=== PATIENT | female | born 1975 | race Caucasian/White ===

== ENCOUNTER 2017-03-03 20:50 | Emergency (ER) | payer OTHER ==
[2017-03-03 21:15] VITALS: BP 126/60; PULSE 86; TEMP 98.1; BMI 22.2
[2017-03-03] MEDS ORDERED: SODIUM CHLORIDE 1,000 ML IV STA (23:02)
--- NOTE | 2017-03-03 23:02 | PDOC ---
History of Present Illness - General History Source: Patient Exam Limitations: No Limitations - History of Present Illness Initial Comments: 03/03/17 23:14 The patient is a 41 year old female with past medical history of D&C x2 and s/p hysterectomy (06/2015) who presents to the ED for 2 days of superpubic pain. Patient describes her pain as crampy in nature. Denies nausea, vomiting, or diarrhea. States she is having difficulty passing stool and when she does, her stool is sometimes look green. Denies bloody stool or melena. Denies any sick contacts or recent travels. The patient denies fever, chills, cough, SOB, chest pain, and palpitations. The patient denies dysuria, hematuria, urgency, and frequency. Allergies: NKDA Social History: No alcohol, tobacco, or drug use reported. Past Surgical History: D&C x2, s/p hysterectomy 06/2015 PCP: n/a <Doreen Cui - Last Filed: 03/04/17 01:32> - General History Source: Patient <Ciaran Sinclair - Last Filed: 03/04/17 03:07> - General Chief Complaint: Pain Stated Complaint: ABD PAIN Time Seen by Provider: 03/03/17 22:59 Past History <Doreen Cui - Last Filed: 03/04/17 01:32> - Past Medical History Other medical history: Pt denies - Surgical History Abdominal Surgery: Yes - Reproductive History (#): 4 Para: 2 Spontaneous : 3 - Immunization History Immunization Up to Date: Yes - Psycho/Social/Smoking Cessation Hx Anxiety: No Suicidal Ideation: No Smoking Status: No Smoking History: Never smoked Have you smoked in the past 12 months: No Number of Cigarettes Smoked Daily: 0 Information on smoking cessation initiated: No Hx Alcohol Use: No Drug/Substance Use Hx: No Substance Use Type: None <Ciaran Sinclair - Last Filed: 03/04/17 03:07> - Past Medical History Allergies/Adverse Reactions: Allergies Allergy/AdvReac Type Severity Reaction Status Date / Time No Known Allergies Allergy Verified 03/03/17 21:13 Home Medications: Ambulatory Orders No Home Medications 0 dose .ROUTE UTDICT 05/13/13 Ibuprofen [Motrin] 400 mg PO TID #30 tablet 03/04/17 Levofloxacin [Levaquin -] 500 mg PO DAILY #7 tablet 03/04/17 Review of Systems - Review of Systems Able to Perform ROS?: Yes Comments:: 03/03/17 23:14 CONSTITUTIONAL: Absent: fever, no chills, no fatigue EYES: Absent: visual changes ENT: Absent: ear pain, no sore throat CARDIOVASCULAR: Absent: chest pain, no palpitations RESPIRATORY: Absent: cough, no SOB GI: +superpubic pain, constipation Absent: no nausea, no vomiting, no diarrhea GENITOURINARY: Absent: dysuria, no frequency, no hematuria MUSCULOSKELETAL: Absent: back pain, no arthralgia, no myalgia SKIN: Absent: rash NEURO: Absent: headache <Doreen Cui - Last Filed: 03/04/17 01:32> *Physical Exam - Vital Signs Last Vital Signs Temp Pulse Resp BP Pulse Ox 98.1 F 86 20 126/60 100 03/03/17 21:13 03/03/17 21:13 03/03/17 21:13 03/03/17 21:13 03/03/17 21:13 - Physical Exam Comments: 03/03/17 23:14 GENERAL: Well-appearing, well-nourished. No apparent distress. HEENT: Normocephalic, atraumatic. PERRL, EOM intact. CARDIOVASCULAR: Normal S1, S2. Regular rate and rhythm. PULMONARY: Clear to auscultation bilaterally. ABDOMEN: Soft, non-distended, moderate tenderness in the superpubic region. No rebound or guarding. EXTREMITIES: Normal ROM in all four extremities. No gross deformities. SKIN: Warm, dry. No rash NEUROLOGICAL: No focal neurological deficits. 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 No intravenous contrast was given. Coronal and sagittal reconstructions were formatted. Sections through the lung bases are unremarkable. The liver and spleen have a normal size and configuration. The gallbladder, biliary tree and pancreas are unremarkable. The kidneys are without stone or hydronephrosis. No solid renal mass is identified. The bowel gas pattern is unremarkable. There is no abnormal bowel wall thickening or evidence of diverticulitis. I see no evidence of colitis. The appendix is normal. The pelvic structures are unremarkable. There is no pathologic adenopathy. The aorta has normal caliber. IMPRESSION: No acute findings are seen in the abdomen or pelvis on this unenhanced examination. <Doreen Cui - Last Filed: 03/04/17 01:32> - LABORATORY CBC & Chemistry Diagram: 03/03/17 23:40 03/03/17 23:40 <Ciaran Sinclair - Last Filed: 03/04/17 03:07> Medical Decision Making - Medical Decision Making 03/04/17 03:07 Dr. Sinclair: The scribe's documentation has been prepared under my direction and personally reviewed by me in its entirery. I confirm that the note above accurately reflects all work, treatment, procedures, and medical decision making performed by me. <Ciaran Sinclair - Last Filed: 03/04/17 03:07> *DC/Admit/Observation/Transfer - Attestations Scribe Attestion: 03/03/17 23:14 Documentation prepared by Doreen Cui, acting as medical technologist prn for Ciaran Sinclair DO. <Doreen Cui - Last Filed: 03/04/17 01:32> - Discharge Dispostion Admit: No <Ciaran Sinclair - Last Filed: 03/04/17 03:07> Diagnosis at time of Disposition: UTI (urinary tract infection) Qualifiers: Urinary tract infection type: site unspecified Hematuria presence: without hematuria Qualified Code(s): N39.0 - Urinary tract infection, site not specified - Prescriptions Prescriptions: Levofloxacin [Levaquin -] 500 mg PO DAILY #7 tablet Ibuprofen [Motrin] 400 mg PO TID #30 tablet - Referrals Referrals: Jairon Gomez MD [Staff Physician] - - Patient Instructions Printed Discharge Instructions: DI for Urinary Tract Infection (UTI) Additional Instructions: take medication as directed. Follow up with your doctor for re-evaluation. Print Language: YI
[2017-03-03 23:51] LABS: BASOPHIL 0.2 % (0-2.0); EOSINOPHIL 0.8 % (0-4.5); MCH 31.1 pg (25.7-33.7); MCHC 34.6 g/dl (32.0-36.0); MEAN CELL VOLUME 89.9 fl (80-96); MEAN PLT VOLUME 9.2 fl (7.5-11.1); PLATELET COUNT 208 K/MM3 (134-434); RDW 14.2 % (11.6-15.6); WHITE BLOOD COUNT 6.6 K/mm3 (4.0-10.0)
[2017-03-04 00:26] LABS: ANION GAP 8 (8-16); CALCIUM 8.8 mg/dL (8.5-10.1); CO2 27 mmol/L (21-32); CREATININE 0.6 mg/dL (0.55-1.02); GLUCOSE,RANDOM 93 mg/dL (74-106); MAGNESIUM 2.3 mg/dL (1.8-2.4); SGOT/AST 18 U/L (15-37); SGPT/ALT 31 U/L (12-78)
[2017-03-04 00:27] LABS: ALK PHOS 60 U/L (45-117); BILIRUBIN,TOTAL 0.8 mg/dL (0.2-1.0); TOT PROT 7.8 g/dl (6.4-8.2)
[2017-03-04 02:46] LABS: URINE APPEARANCE SLCLOUDY; URINE BILIRUBIN NEGATIVE (NEGATIVE); URINE BLOOD 2+ (NEGATIVE); URINE COLOR YELLOW; URINE GLUCOSE (UA) NEGATIVE (NEGATIVE); URINE KETONE 1+ (NEGATIVE); URINE NITRITE NEGATIVE (NEGATIVE); URINE PROTEIN NEGATIVE (NEGATIVE); URINE UROBILINOGEN NEGATIVE mg/dL (0.2-1.0)
[2017-03-04 02:51] LABS: URINE LEUK ESTERASE 2+ (NEGATIVE)
[2017-03-04 03:01] LABS: URINE HYALINE CAST 1 /lpf; URINE MUCUS FEW; URINE RBC 8 /hpf (0-3); URINE WBC 12 /hpf (3-5)
[2017-03-04] MEDS ORDERED: LEVOFLOXACIN 500 MG TABLET (FP) PO ONE (03:03)
[2017-03-04] MEDS ORDERED: IBUPROFEN 400 MG TABLET (FP) PO ONE ×2 (03:04→03:13)
[2017-03-04] MEDS ORDERED: LEVOFLOXACIN 500 MG TABLET (FP) ONE (03:12)
== END 2017-03-04 03:25 | disposition home or self-care (01) ==
LOC: JER 20:50
PROC: 3E0337Z Introduction of Electrolytic and Water Balance Substance into Peripheral Vein, Percutaneous Approach (ICD-10-PCS; principal; 2017-03-03)
DX: N39.0 Urinary tract infection, site not specified (principal)
CPT/HCPCS: 36415; 74176-TC; 80053; 81003; 81015; 83690; 83735; 84703; 85025; 87086; 99284-25

== ENCOUNTER 2018-02-11 06:42 | Observation (INO) | payer OTHER ==
[2018-02-11 07:21] VITALS: BMI 21.4
--- NOTE | 2018-02-11 08:06 | PDOC ---
History of Present Illness - General Chief Complaint: Back Pain Stated Complaint: NECK PAIN Time Seen by Provider: 02/11/18 07:48 - History of Present Illness Initial Comments: Mae Saldana is a 42yo woman with no pertinent medical history who presents with posterior neck and upper shoulder pain since last night. She additionally reports inability to turn her head secondary to pain as well as some tingling in her left fingers. Ms Saldana states that when this pain started, she took some acetaminophen last night without any improvement. She woke overnight and felt that the pain had worsened around 1:30am. She took 600mg ibuprofen and some Augmentin that she had at home, but her pain did not improve. She does endorse a headache. Ms Saldana denies any recent injury or trauma, nausea or vomiting, fever, or URI symptoms. She has never had similar pain before. She does not have any neurological history. She does report recent dental work over the past several weeks, with three total procedures including one yesterday. Past History - Past Medical History Allergies/Adverse Reactions: Allergies Allergy/AdvReac Type Severity Reaction Status Date / Time No Known Allergies Allergy Verified 02/11/18 07:16 Home Medications: Ambulatory Orders Ibuprofen [Motrin] 400 mg PO TID PRN 02/11/18 COPD: No - Surgical History Abdominal Surgery: Yes - Reproductive History (#): 4 Para: 2 Spontaneous : 3 - Immunization History Immunization Up to Date: Yes - Suicide/Smoking/Psychosocial Hx Smoking Status: No Smoking History: Never smoked Have you smoked in the past 12 months: No Number of Cigarettes Smoked Daily: 0 Hx Alcohol Use: No Drug/Substance Use Hx: No Substance Use Type: None Review of Systems - Review of Systems Comments:: General: No fevers, no chills, no weight or appetite change, no malaise HEENT: See HPI CV: No chest pain, no palpitations, no LE edema Pulm: No SOB, no cough, no wheezing GI: No nausea or vomiting, no change in bowel habits, no melena : No frequency, no urgency, no dysuria Musc: No back pain, no joint swelling, no recent injury Skin: No rash, no lesions, no erythema Endo: No excessive thirst, no heat/cold intolerance Heme: No unusual bruising or bleeding, no swollen glands Neuro: No syncope, no numbness/tingling, no focal weakness Vasc: No claudication Psych: No recent change in mood, no SI or HI *Physical Exam - Vital Signs Last Vital Signs Temp Pulse Resp BP Pulse Ox 98.5 F 88 18 133/73 99 02/11/18 07:18 0818 07:18 08 07:18 02/11/18 07:18 02/11/18 07:18 - Physical Exam Comments: Vitals: Rectal temp 99.0 F General: Very uncomfortable, sitting stiffly in chair HEENT: PERRL, EOMI, MMM, voice normal. Refuses to move head or neck secondary to pain. Tender to palpation along posterior neck and trapezius. Cards: RRR, no murmur appreciated Pulm: Comfortable on room air, clear to auscultation bilaterally Abd: Soft, nontender, nondistended : No CVA tenderness Ext: Atraumatic. No LE edema. ROM intact. Hand, elbow and shoulder strength 5/5 and equal bilaterally Vasc: Extremities WWP. Palpable radial pulse bilaterally. Neuro: A&Ox3, CN grossly intact, normal speech, motor/sensory grossly intact and symmetric. Sensation to light touch equal in upper extremities Psych: Mood appropriate to situation Procedures - Lumbar Puncture Indication: Meningitis CT Scan: Yes Betadine Prep: Yes Position: Sitting Site: L4-L51 Local Anesthesia: 1% Lidocaine with epi Volume(ml): 10 Lumbar Puncture Kit: Adult Traumatic Tap: No Clear Fluid: Yes Complications: No ED Treatment Course - LABORATORY CBC & Chemistry Diagram: 02/11/18 08:40 02/11/18 08:40 Medical Decision Making - Medical Decision Making 02/11/18 08:39 Mae Saldana is a 42yo woman with no relevant medical history of presents with severe posterior neck pain, upper shoulder pain, and headache since yesterday. She reports recent extensive dental work, most recently yesterday. - Concern for possible meningitis - Ms Les has severe neck pain that prevents her from moving her head, headache, and recent dental work. She does not have a fever, but she did take ibuprofen as well as Augmentin overnight which may have reduced any fever present and partially improved her physical exam. She additionally reports tingling in her fingers, though sensation and strength is intact on exam - CBC, BMP, blood cultures, lactate, coags, test ordered - Ceftriaxone, dexamethasone ordered. Will also give vancomycin when completed. - Very low concern for aneurysm or dissection as she does not report abrupt onset of the pain and has not had nausea and vomiting. Will obtain non-contrast CT head to rule out - No concern for cervical spine injury given lack of history of trauma - May also be musculoskeletal as she has tenderness to palpation, neck stiffness consistent with muscle spasm 02/11/18 10:42 - Labs completed. No leukocytosis, coags normal, preg negative - CT w/o any acute abnormalities - Consented for lumbar puncture 02/11/18 11:55 - 2mg versed given prior to LP - Lumbar puncture completed without complication - CSF sent to lab for glucose, counts, culture - Laying flat to following procedure 02/11/18 12:56 - Will need admission for at least 24hr for neuro monitoring and ideally for preliminary culture results as both symptoms and fever could potentially be masked by antipyretic and antibiotics taken over the past [address] Salazar. *DC/Admit/Observation/Transfer Diagnosis at time of Disposition: Neck pain Headache Qualifiers: Headache type: unspecified Headache chronicity pattern: acute headache Intractability: intractable Qualified Code(s): R51 - Headache - Discharge Dispostion Condition at time of disposition: Fair Decision to Admit order: Yes - Referrals - Patient Instructions - Post Discharge Activity
--- NOTE | 2018-02-11 08:07 | PDOC ---
Attending Attestation - HPI HPI: 02/11/18 09:31 The patient is a 42 year old female with no past medical history who presents to the emergency department for evaluation of neck and shoulder pain since last night. The patient reports the moderate neck pain. She notes she is unable to turn her head secondary to the pain. Patient admits to taking acetaminophen last night, and 600mg ibuprofen today without alleviation. She endorses an associated symptom of a headache. The patient denies history of shoulder injuries, recent injury or trauma, strenuous activity, chest pain, shortness of breath, and dizziness. Denies fever , chills, nausea, vomiting, and any bowel/urinary symptoms. Allergies: No allergies Social History: No reported alcohol, cigarette, or drug use. Surgical History: Abdominal - Physicial Exam PE: Vitals: Triage Vital signs reviewed General Appearance: no acute distress, well nourished well developed, Head: Atraumatic, normocephalic Eyes: Pupils equal reactive round, extraocular movement intact Neck: Supple Chest Wall: Nontender Cardiac: Regular rate and rhythm, no murmurs, no rubs, no gallops, Lungs: Clear to auscultation bilateral, good air movement bilaterally, Abdomen: Soft, nondistended, nontender to palpation Extremities: Full range of motion to all extremities, no cyanosis, clubbing, or edema Skin: Warm and dry, no rashes or lesions, no petechiae Psych: normal mood, normal affect - Medical Decision Making The patient is a 42 year old female with no past medical history who presents to the emergency department for evaluation of neck and shoulder pain since last night. Plan: Head CT Labs Medications UA <Fifi Carey - Last Filed: 02/11/18 10:57> - Resident Resident Name: Suzanne Jefferson - ED Attending Attestation I have performed the following: I have examined & evaluated the patient, The case was reviewed & discussed with the resident, I agree w/resident's findings & plan, Exceptions are as noted - Medical Decision Making Patient with neck pain headache neck stiffness Recent dental procedure recent antibiotics Given these confounding circumstances and the possibility of a partially treated meningitis decision made to treat with Decadron ceftriaxone Head CT and labs obtained prior to LP LP performed patient consented and Timeout performed prior to procedure. See resident note. Patient tolerated procedure well We'll observe overnight and hospital to follow up on cultures and reevaluate patient. <Kb Salazar - Last Filed: 02/11/18 11:47> Attestations - Attestations Documentation prepared by Fifi Carey, acting as emergency medical dispatcher for Kb Salazar MD. <Fifi Carey - Last Filed: 02/11/18 10:57>
[2018-02-11] MEDS ORDERED: diazePAM 2 MG TABLET PO ONE (08:11)
[2018-02-11] MEDS ORDERED: ACETAMINOPHEN 500 MG TABLET (FP) PO ONE (08:11)
[2018-02-11] MEDS ORDERED: SODIUM CHLORIDE 0.9% 500 ML INFUS.BAG IV ONE (08:18)
[2018-02-11] MEDS ORDERED: ACETAMINOPHEN 1000 MG/100 ML VIAL (NON FORMULARY) IVPB ONE (08:18)
[2018-02-11] MEDS ORDERED: ACETAMINOPHEN INJECTION 100 ML IVPB ONE (08:23)
[2018-02-11] MEDS ORDERED: DEXAMETHASONE SOD PHOSPHATE 4 MG/1 ML VIAL IVPUSH ONE (08:31)
[2018-02-11] MEDS ORDERED: CEFTRIAXONE 2,000 MG in DEXTROSE 5%-WATER - 50 ML IVPB ONE (08:31)
[2018-02-11] MEDS ORDERED: CEFTRIAXONE 2 GM in DEXTROSE 5%-WATER 100 ML IVPB ONE (08:43)
[2018-02-11] MEDS ORDERED: DEXAMETHASONE SOD PHOSPHATE 4 MG/1 ML VIAL ONE (08:55)
[2018-02-11] MEDS ORDERED: CEFTRIAXONE 2 GM/100 ML BAG IVPB ONE (08:56)
[2018-02-11 08:59] LABS: HEMATOCRIT 39.7 % (32.4-45.2); HEMOGLOBIN 13.7 GM/dL (10.7-15.3); MCH 30.6 pg (25.7-33.7); MCHC 34.5 g/dl (32.0-36.0); MEAN CELL VOLUME 88.6 fl (80-96); MEAN PLT VOLUME 8.6 fl (7.5-11.1); PLATELET COUNT 215 K/MM3 (134-434); RBC 4.48 M/mm3 (3.60-5.2); RDW 14.2 % (11.6-15.6); WHITE BLOOD COUNT 5.3 K/mm3 (4.0-10.0)
[2018-02-11 09:09] LABS: INR 1.11 (0.83-1.09); PROTHROMBIN TIME (PATIENT) 12.5 SEC (9.7-13.0)
[2018-02-11 09:12] LABS: ACTIVATED PTT 32.5 SECONDS (25.2-36.5)
[2018-02-11 09:16] LABS: ANION GAP 8 (8-16); BLOOD UREA NITROGEN 10 mg/dL (7-18); CALCIUM 8.5 mg/dL (8.5-10.1); CHLORIDE 110 mmol/L (98-107); CO2 24 mmol/L (21-32); CREATININE 0.6 mg/dL (0.55-1.02); GLUCOSE,RANDOM 96 mg/dL (74-106); POTASSIUM 3.8 mmol/L (3.5-5.1); SODIUM 142 mmol/L (136-145)
[2018-02-11] MEDS ORDERED: LIDOCAINE HCL 2% (50ML VIAL) SQ ONE (10:40)
[2018-02-11] MEDS ORDERED: MIDAZOLAM HCL 2 MG/2 ML SINGLE DOSE VIAL IVPUSH ONE (10:40)
[2018-02-11] MEDS ORDERED: VANCOMYCIN 1,000 MG in DEXTROSE 5%-WATER - 250 ML IVPB ONE (10:44)
[2018-02-11] MEDS ORDERED: MIDAZOLAM HCL 2 MG/2 ML SINGLE DOSE VIAL ONE (11:06)
[2018-02-11] MEDS ORDERED: LIDOCAINE HCL 2% (20ML MULTI-DOSE VIAL) NR ONE (11:06)
[2018-02-11 12:21] LABS: GLUCOSE,CSF 49 mg/dL (50-80)
[2018-02-11 12:42] LABS: CSF WBC 0
[2018-02-11 12:43] LABS: CSF APPEARANCE CLEAR; CSF COLOR COLORLESS
[2018-02-11] MEDS ORDERED: VANCOMYCIN 1 GRAM (PRE-DOCKED) 1,000 MG/250 ML BAG IVPB ONE (12:59)
[2018-02-11] MEDS ORDERED: CYCLOBENZAPRINE HCL 10 MG TABLET (FP) PO SCH (14:30)
[2018-02-11] MEDS ORDERED: SODIUM CHLORIDE 1,000 ML IV SCH (14:30)
[2018-02-11] MEDS ORDERED: diazePAM 2 MG TABLET PO SCH (14:30)
--- NOTE | 2018-02-11 14:32 | PN ---
Teaching Attending Note Name of Resident: Uday Norwood ATTENDING PHYSICIAN STATEMENT I saw and evaluated the patient. I reviewed the resident's note and discussed the case with the resident. I agree with the resident's findings and plan as documented. SUBJECTIVE: Pt is a 42 y/o F with no significant PMHx who presents to the ED with headache and neck pain since yesterday. Patient had a dental work up done a week ago, she had a root canal done and was given a week of Antibiotics Augmentin as per patient. Yesterday she developed this severe headache with neck spasm and difficulty opening her mouth. Neck pain 10/10 ,none radiating. 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 Denies lifting anything heavy or having any car accident. OBJECTIVE: Vital Signs Temperature 98.0 F 02/11/18 13:13 Pulse Rate 76 02/11/18 13:13 Respiratory Rate 17 02/11/18 13:13 Blood Pressure 99/58 02/11/18 13:13 O2 Sat by Pulse Oximetry (%) 98 02/11/18 13:13 CBCD WBC 5.3 K/mm3 (4.0-10.0) 02/11/18 08:40 RBC 4.48 M/mm3 (3.60-5.2) 02/11/18 08:40 Hgb 13.7 GM/dL (10.7-15.3) 02/11/18 08:40 Hct 39.7 % (32.4-45.2) 02/11/18 08:40 MCV 88.6 fl (80-96) 02/11/18 08:40 MCHC 34.5 g/dl (32.0-36.0) 02/11/18 08:40 RDW 14.2 % (11.6-15.6) 02/11/18 08:40 Plt Count 215 K/MM3 (134-434) 02/11/18 08:40 MPV 8.6 fl (7.5-11.1) 02/11/18 08:40 CMP Sodium 142 mmol/L (136-145) 02/11/18 08:40 Potassium 3.8 mmol/L (3.5-5.1) 02/11/18 08:40 Chloride 110 mmol/L (98-107) H 02/11/18 08:40 Carbon Dioxide 24 mmol/L (21-32) 02/11/18 08:40 Anion Gap 8 (8-16) 02/11/18 08:40 BUN 10 mg/dL (7-18) 02/11/18 08:40 Creatinine 0.6 mg/dL (0.55-1.02) 02/11/18 08:40 Creat Clearance w eGFR > 60 (>60) 02/11/18 08:40 Random Glucose 96 mg/dL (74-106) 02/11/18 08:40 Calcium 8.5 mg/dL (8.5-10.1) 02/11/18 08:40 Current Medications Generic Name Dose Route Start Last Admin Trade Name Freq PRN Reason Stop Dose Admin Cyclobenzaprine HCl 5 mg 02/11/18 22:00 Flexeril - PO TID JOAQUÍN Diazepam 2 mg 02/11/18 14:30 Valium - PO Q6H JOAQUÍN Heparin Sodium (Porcine) 5,000 unit 02/11/18 14:15 Heparin - SQ TID [facility] Sodium Chloride 1,000 mls @ 125 mls/hr 02/11/18 14:31 Normal Saline - IV ASDIR [facility] Home Medications Medication Instructions Recorded Ibuprofen [Motrin] 400 mg PO TID PRN 02/11/18 PE: neck: stiff, decreased ROM, on Palpation, patient has musculoskeletal tenderness , no cervical lymphadenopathy. Mouth: able to open her mouth to 10-15mm only Chest: CTA Bl abdomen: soft ,NT, bs POSITIVE eXT: cn2-12 GROSSLY INTACT ASSESSMENT AND PLAN: Pt is a 42 y/o F with no significant PMHx who presents to the ED with headache and neck pain since yesterday.Patient had a dental work up done a week ago, she had a root canal done and was given a week of Antibiotics Augmentin as per patient. Yesterday she developed this severe headache with neck spasm and difficulty opening her mouth. Neck pain 10/10 ,none radiating. 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 Denies lifting anything heavy or having any car accident. # Acute headache , meningitis was r/o s/p LP in ED, no cells , Id was consulted.CT negative for any bleed. # Acute Jaw lock syndrome/Trismus Valium, Flexeril and warm towel behind her neck. Neuro consulted as well. Also CT of the neck and facial is done to r/o abcess. DVT Px: Heparin sq
--- NOTE | 2018-02-11 14:54 | HP ---
CHIEF COMPLAINT: headache and neck pain PCP: none HISTORY OF PRESENT ILLNESS: Pt is a 42 y/o F with no significant PMH who presents to the ED with headache and neck pain since yest morning. Both headache and neck pain started suddenly. Pain was 10/10 on the top of the head bilateral. Pt is not able to easily move her neck because of pain. Pt denies fever, chills, sick contacts, vision changes , nausea, vomiting, diarrhea, sick contacts, travel. 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 Pt had a series of dental procedures including a root canal over the past few weeks, the last of which was on Wed. Pt was given some medications, which included amoxacillin. She denies pain of the site of the procedure at this time. Denies swelling. ER course was notable for: (1) Labs unremarkable (2) Head CT negative (3) LP largely unremarkable Recent Travel: denies PAST MEDICAL HISTORY: denies PAST SURGICAL HISTORY: hist C/S x 3 and hysterectomy for bleeding 3 years ago Social History: Smoking: denies Alcohol: denies Drugs: denies Family History: denies Allergies No Known Allergies Allergy (Verified 02/11/18 07:16) HOME MEDICATIONS: Home Medications Medication Instructions Recorded Ibuprofen [Motrin] 400 mg PO TID PRN 02/11/18 REVIEW OF SYSTEMS CONSTITUTIONAL: Absent: fever, chills, diaphoresis, generalized weakness, malaise, loss of appetite, weight change HEENT: Absent: rhinorrhea, nasal congestion, throat pain, throat swelling, difficulty swallowing, mouth swelling, ear pain, eye pain, visual changes CARDIOVASCULAR: Absent: chest pain, syncope, palpitations, irregular heart rate, lightheadedness , peripheral edema RESPIRATORY: Absent: cough, shortness of breath, dyspnea with exertion, orthopnea, wheezing, stridor, hemoptysis GASTROINTESTINAL: Absent: abdominal pain, abdominal distension, nausea, vomiting, diarrhea, constipation, melena, hematochezia GENITOURINARY: Absent: dysuria, frequency, urgency, hesitancy, hematuria, flank pain, genital pain MUSCULOSKELETAL: Absent: myalgia, arthralgia, joint swelling, back pain, neck pain SKIN: Absent: rash, itching, pallor HEMATOLOGIC/IMMUNOLOGIC: Absent: easy bleeding, easy bruising, lymphadenopathy, frequent infections ENDOCRINE: Absent: unexplained weight gain, unexplained weight loss, heat intolerance, cold intolerance NEUROLOGIC: headache, neck pain Absent: , focal weakness or paresthesias, dizziness, unsteady gait, seizure, mental status changes, bladder or bowel incontinence PSYCHIATRIC: Absent: anxiety, depression, suicidal or homicidal ideation, hallucinations. PHYSICAL EXAMINATION Vital Signs - 24 hr 02/11/18 02/11/18 02/11/18 07:18 08:18 13:13 Temperature 98.5 F 99.0 F 98.0 F Pulse Rate 88 Pulse Rate [ 76 Right Radial] Respiratory 18 17 Rate Blood Pressure 133/73 Blood Pressure 99/58 [Left Arm] O2 Sat by Pulse 99 98 Oximetry (%) Gen: Pt lying in bed not moving head, slightly drowsy (recently received Valium) HEENT: NCAT, PERRL, EOMI, pt able to open mouth, no erythema/pus/swelling/ bleeding in oropharynx, moist membranes Neck: pt unable to fully range her neck. Able to move head side to side, but has pain on returning head to midline. Unable to perform [id number]. No thyromegally Cardio: normal s1s2, rrr, no murmurs Pulm: limited exam. cta b/l Abd: soft nontender, no organomegally Ext: no edema, 2+ pulses Neuro: distal strength/sensation intact throughout. On CN exam, pt unable to smile due to pain. No photophobia. Kernig's negative (no pain) Laboratory Results - last 24 hr 02/11/18 02/11/18 02/11/18 08:40 08:40 08:40 WBC 5.3 RBC 4.48 Hgb 13.7 Hct 39.7 MCV 88.6 MCH 30.6 MCHC 34.5 RDW 14.2 Plt Count 215 MPV 8.6 PT with INR 12.50 INR 1.11 H PTT (Actin FS) 32.5 Sodium 142 Potassium 3.8 Chloride 110 H Carbon Dioxide 24 Anion Gap 8 BUN 10 Creatinine 0.6 Creat Clearance w eGFR > 60 Random Glucose 96 Lactic Acid Calcium 8.5 Urine HCG, Qual CSF Appearance CSF Color CSF WBC CSF RBC CSF Neutrophils CSF Lymphocytes CSF Eosinophils CSF Basophils CSF Macrophages CSF Plasma Cells CSF Diff Comment CSF Comment CSF Glucose CSF Total Protein 02/11/18 02/11/18 02/11/18 08:40 08:50 11:40 WBC RBC Hgb Hct MCV MCH MCHC RDW Plt Count MPV PT with INR INR PTT (Actin FS) Sodium Potassium Chloride Carbon Dioxide Anion Gap BUN Creatinine Creat Clearance w eGFR Random Glucose Lactic Acid 0.6 Calcium Urine HCG, Qual Negative CSF Appearance Clear CSF Color Colorless CSF WBC 0 CSF RBC 18 CSF Neutrophils No Result Required. CSF Lymphocytes No Result Required. CSF Eosinophils No Result Required. CSF Basophils No Result Required. CSF Macrophages No Result Required. CSF Plasma Cells No Result Required. CSF Diff Comment No Result Required. CSF Comment No Result Required. CSF Glucose CSF Total Protein 02/11/18 12:00 WBC RBC Hgb Hct MCV MCH MCHC RDW Plt Count MPV PT with INR INR PTT (Actin FS) Sodium Potassium Chloride Carbon Dioxide Anion Gap BUN Creatinine Creat Clearance w eGFR Random Glucose Lactic Acid Calcium Urine HCG, Qual CSF Appearance CSF Color CSF WBC CSF RBC CSF Neutrophils CSF Lymphocytes CSF Eosinophils CSF Basophils CSF Macrophages CSF Plasma Cells CSF Diff Comment CSF Comment CSF Glucose 49 L CSF Total Protein 36 ASSESSMENT/PLAN: Pt is a 42 y/o F with no sig PMH who presented to ED with 1 day of headache and neck pain following recent dental procedure. #R/o meningitis -presentation not suggestive of infectious process, however, pt has been on ABx , which may be masking signs and symptoms -LP done in ED -Vanc/Zosyn given in ED -monitor headache/neck stiffness #r/o local spread of infection from dental procedure -pt asymptomatic at this time, but has been on ABx -CT face and neck #Neck stiffness -Valium -flexeril #FEN -NS -lytes wnl -NPO #PPx -Hep Sub Q #Dispo -Med/Surg Uday Norwood MD PGY-2 IM Visit type - Emergency Visit Emergency Visit: Yes ED Registration Date: 02/11/18 Care time: The patient presented to the Emergency Department on the above date and was hospitalized for further evaluation of their emergent condition. - New Patient This patient is new to me today: Yes Date on this admission: 02/11/18 - Critical Care Critical Care patient: No Hospitalist Screening - Colonoscopy Questionnaire Colonoscopy Questionnaire: Colonoscopy Questionnaire - Patient: 50 - 75 years old and never had a screening colonoscopy: Unknown History of colon or rectal polyps, or CA: Unknown History of IBD, Crohn's disease or UC: Unknown History of abdominal radiation therapy as a child: Unknown - Relative: 1 with colon or rectal CA, or polyps at age 60 or younger: Unknown Colon or rectal CA diagnosed at age 45 or younger: Unknown Multiple relatives with colon or rectal CA: Unknown - Outcome: Screening Result: Negative Screen
[2018-02-11] MEDS: SODIUM CHLORIDE 1,000 ML IV SCH (14:55)
[2018-02-11] MEDS: diazePAM 2 MG TABLET PO SCH ×2 (14:55→22:06)
[2018-02-11] MEDS: HEPARIN NA (PORCINE) 5,000 UNITS/ML 1ML VIAL SQ SCH ×2 (14:55→22:09)
[2018-02-11] MEDS ORDERED: diazePAM 2 MG TABLET ONE ×2 (14:57→22:04)
[2018-02-11] MEDS ORDERED: HEPARIN NA (PORCINE) 5,000 UNITS/ML 1ML VIAL ONE ×2 (14:58→22:14)
--- NOTE | 2018-02-11 15:33 | CON.NEURO ---
Consult Consult Specialty:: Juan Luis Referred by:: ER Reason for Consultation:: headache - History of Present Illness Chief Complaint: hedache History of Present Illness: 42 womna with no PMH presented with headache Patient had dental work and was on Augmentin woke Patient was tapped CSF was normal No fever since Isloation was dc Pain Mostly jose alejandro neck 4/10 Sharp No headcah e Patient denies recent travel Head t was normal - History Source History Provided By: Patient Limitations to Obtaining History: No Limitations - Past Medical History ...LMP: 11/05/14 - Past Surgical History Past Surgical History: Yes: None - Alcohol/Substance Use Hx Alcohol Use: No - Smoking History Smoking history: Never smoked Have you smoked in the past 12 months: No Aproximately how many cigarettes per day: 0 Home Medications - Allergies Allergies/Adverse Reactions: Allergies Allergy/AdvReac Type Severity Reaction Status Date / Time No Known Allergies Allergy Verified 02/11/18 07:16 - Home Medications Home Medications: Ambulatory Orders Ibuprofen [Motrin] 400 mg PO TID PRN 02/11/18 Family Disease History - Family Disease History Family History: Denies (migraine) Review of Systems - Review of Systems Constitutional: reports: No Symptoms Eyes: reports: No Symptoms Neurological: reports: Dizziness, Headache, Incoordination Physical Exam-Neuro Vital Signs: Vital Signs Temperature 98.0 F 02/11/18 13:13 Pulse Rate 76 02/11/18 13:13 Respiratory Rate 17 02/11/18 13:13 Blood Pressure 99/58 02/11/18 13:13 O2 Sat by Pulse Oximetry (%) 98 02/11/18 13:13 Constitutional: Yes: Well Nourished Neck: Yes: WNL Labs: CBC, BMP 02/11/18 08:40 02/11/18 08:40 INR, PTT INR 1.11 (0.83-1.09) H 02/11/18 08:40 - Neuro Exam Level Of Consciousness: Yes: Oriented to Person, Oriented to Place, Oriented to Time Eyes: Yes: PERRLA Speech: WNL Dominant Hand: Right Cranial Nerves II-XII Intact: Yes Gag: Present DTR's: 1+ Left Bicep, 1+ Right Bicep, 1+ Left Brachioradialis, 1+ Right Brachioradialis Response to light touch: Normal Response to pain prick: Normal Response to temperature: Normal Response to vibration: Normal Motor Strength: 3/5: Left Arm, Right Arm, Left Leg, Right Leg Gait: Deferred Imaging - Results Cat Scan: Image Reviewed Problem List - Problems (1) Headache Assessment/Plan: No need for admission Neuro can go home Fiorect for one week Flexeril for neck pain will get MRI brain and C spine as OP Many thanks for [facility] kind referral Code(s): R51 - HEADACHE Qualifiers: Headache type: unspecified Headache chronicity pattern: acute headache Intractability: intractable Qualified Code(s): R51 - Headache (2) Neck pain Code(s): M54.2 - CERVICALGIA
[2018-02-11] MEDS ORDERED: ACETAMINOPHEN/CAFFEINE/BUTALBITAL 1 TAB PO SCH (15:45)
--- NOTE | 2018-02-11 16:35 | PN ---
Progress Note (short form) - Note Progress Note: ID Consult dictated No evidence for acute meningitis S/P dental work ? infection secondary to dental source Await c/s Empiric unasyn D/C isolation
[2018-02-11] MEDS ORDERED: AMPICILLIN NA/SULBACTAM NA 1.5 GM in SODIUM CHLORIDE 100 ML IVPB SCH (16:45)
[2018-02-11] MEDS: AMPICILLIN NA/SULBACTAM NA 1.5 GM in SODIUM CHLORIDE 100 ML IVPB SCH (18:02)
[2018-02-11] MEDS ORDERED: ACETAMINOPHEN/CAFFEINE/BUTALBITAL 1 TAB PO ONE (18:12)
[2018-02-11] MEDS ORDERED: ACETAMINOPHEN/CAFFEINE/BUTALBITAL 1 TAB ONE (18:13)
[2018-02-11] MEDS: CYCLOBENZAPRINE HCL 10 MG TABLET (FP) PO SCH (22:06)
[2018-02-11] MEDS ORDERED: CYCLOBENZAPRINE HCL 10 MG TABLET (FP) ONE (22:14)
[2018-02-12] MEDS ORDERED: AMPICILLIN NA/SULBACTAM NA 1.5 GM VIAL ONE ×2 (02:36→09:02)
[2018-02-12] MEDS ORDERED: SODIUM CHLORIDE 100 ML IVPB ONE ×2 (02:37→09:02)
[2018-02-12] MEDS: SODIUM CHLORIDE 1,000 ML IV SCH (02:37)
[2018-02-12] MEDS: AMPICILLIN NA/SULBACTAM NA 1.5 GM in SODIUM CHLORIDE 100 ML IVPB SCH ×4 (02:38→09:12)
[2018-02-12] MEDS: CYCLOBENZAPRINE HCL 10 MG TABLET (FP) PO SCH ×2 (06:15→13:37)
[2018-02-12] MEDS: HEPARIN NA (PORCINE) 5,000 UNITS/ML 1ML VIAL SQ SCH ×2 (06:16→13:37)
[2018-02-12 08:02] LABS: BASO % 0.2 % (0-2.0); EOS % 0.1 % (0-4.5); HEMATOCRIT 36.6 % (32.4-45.2); HEMOGLOBIN 12.6 GM/dL (10.7-15.3); LYMPH % 27.9 % (8-40); MCH 30.8 pg (25.7-33.7); MCHC 34.4 g/dl (32.0-36.0); MEAN CELL VOLUME 89.6 fl (80-96); MEAN PLT VOLUME 8.8 fl (7.5-11.1); MONO % 6.8 % (3.8-10.2); PLATELET COUNT 197 K/MM3 (134-434); RBC 4.09 M/mm3 (3.60-5.2); RDW 14.5 % (11.6-15.6); WHITE BLOOD COUNT 5.3 K/mm3 (4.0-10.0)
[2018-02-12 08:47] VITALS: BP 93/57; PULSE 65; TEMP 99
[2018-02-12 08:47] LABS: ALBUMIN 3.4 g/dl (3.4-5.0); ANION GAP 9 (8-16); BLOOD UREA NITROGEN 6 mg/dL (7-18); CALCIUM 8.3 mg/dL (8.5-10.1); CHLORIDE 110 mmol/L (98-107); CO2 23 mmol/L (21-32); GLUCOSE,RANDOM 111 mg/dL (74-106); MAGNESIUM 2.2 mg/dL (1.8-2.4); PHOSPHOROUS 2.6 mg/dL (2.5-4.9); POTASSIUM 3.4 mmol/L (3.5-5.1); SGOT/AST 16 U/L (15-37); SODIUM 142 mmol/L (136-145)
[2018-02-12 08:49] LABS: ALK PHOS 47 U/L (45-117); BILIRUBIN,TOTAL 0.7 mg/dL (0.2-1.0); CREATININE 0.8 mg/dL (0.55-1.02); SGPT/ALT 19 U/L (12-78); TOT PROT 6.9 g/dl (6.4-8.2)
[2018-02-12] MEDS: diazePAM 2 MG TABLET PO SCH (09:12)
--- NOTE | 2018-02-12 11:29 | DS ---
Physical Exam: SUBJECTIVE: Patient seen and examined Patient is comfrotable with no acute distress, no further headache, slight neck pain on the right side OBJECTIVE: Vital Signs Temperature 99.0 F 02/12/18 08:45 Pulse Rate 65 02/12/18 08:45 Respiratory Rate 20 02/12/18 08:45 Blood Pressure 93/57 02/12/18 08:45 O2 Sat by Pulse Oximetry (%) 98 02/12/18 02:00 PHYSICAL EXAM GENERAL: The patient is awake, alert, and fully oriented, in no acute distress. HEAD: Normal with no signs of trauma. EYES: PERRL, extraocular movements intact, sclera anicteric, conjunctiva clear. ENT: Ears normal, nares patent, oropharynx clear without exudates, moist mucous membranes. NECK: Trachea midline, full range of motion, supple. slight neck pain on the right side of the neck posteriorly LUNGS: Breath sounds equal, clear to auscultation bilaterally, no wheezes, no crackles, no accessory muscle use. HEART: Regular rate and rhythm, S1, S2 without murmur, rub or gallop. ABDOMEN: Soft, nontender, nondistended, normoactive bowel sounds, no guarding, no rebound, no hepatosplenomegaly, no masses. EXTREMITIES: 2+ pulses, warm, well-perfused, no edema. NEUROLOGICAL: Cranial nerves II through XII grossly intact. Normal speech, gait is stable. PSYCH: Normal mood, normal affect. SKIN: Warm, dry, normal turgor, no rashes or lesions noted. LABS CBCD WBC 5.3 K/mm3 (4.0-10.0) 02/12/18 07:00 RBC 4.09 M/mm3 (3.60-5.2) 02/12/18 07:00 Hgb 12.6 GM/dL (10.7-15.3) 02/12/18 07:00 Hct 36.6 % (32.4-45.2) 02/12/18 07:00 MCV 89.6 fl (80-96) 02/12/18 07:00 MCHC 34.4 g/dl (32.0-36.0) 02/12/18 07:00 RDW 14.5 % (11.6-15.6) 02/12/18 07:00 Plt Count 197 K/MM3 (134-434) 02/12/18 07:00 MPV 8.8 fl (7.5-11.1) 02/12/18 07:00 CMP Sodium 142 mmol/L (136-145) 02/12/18 07:00 Potassium 3.4 mmol/L (3.5-5.1) L 02/12/18 07:00 Chloride 110 mmol/L (98-107) H 02/12/18 07:00 Carbon Dioxide 23 mmol/L (21-32) 02/12/18 07:00 Anion Gap 9 (8-16) 02/12/18 07:00 BUN 6 mg/dL (7-18) L 02/12/18 07:00 Creatinine 0.8 mg/dL (0.55-1.02) 02/12/18 07:00 Creat Clearance w eGFR > 60 (>60) 02/12/18 07:00 Random Glucose 111 mg/dL (74-106) H 02/12/18 07:00 Calcium 8.3 mg/dL (8.5-10.1) L 02/12/18 07:00 Total Bilirubin 0.7 mg/dL (0.2-1.0) 02/12/18 07:00 AST 16 U/L (15-37) 02/12/18 07:00 ALT 19 U/L (12-78) 02/12/18 07:00 Alkaline Phosphatase 47 U/L (45-117) 02/12/18 07:00 Total Protein 6.9 g/dl (6.4-8.2) 02/12/18 07:00 Albumin 3.4 g/dl (3.4-5.0) 02/12/18 07:00 Current Medications Generic Name Dose Route Start Last Admin Trade Name Freq PRN Reason Stop Dose Admin Acetaminophen/Butalbital/Caffeine tablet 02/11/18 15:45 Fioricet - PO ONCE JOAQUÍN Cyclobenzaprine HCl 5 mg 02/11/18 22:00 02/12/18 06:15 Flexeril - PO 5 mg TID JOAQUÍN Administration Diazepam 2 mg 02/11/18 14:45 02/12/18 09:12 Valium - PO 2 mg BID JOAQUÍN Administration Heparin Sodium (Porcine) 5,000 unit 02/11/18 14:15 02/12/18 06:16 Heparin - SQ 5,000 unit TID JOAQUÍN Administration Sodium Chloride 1,000 mls @ 125 mls/hr 02/11/18 14:31 02/12/18 02:37 Normal Saline - IV 125 mls/hr ASDIR JOAQUÍN Administration Ampicillin Sodium/Sulbactam 100 mls @ 200 mls/hr 02/12/18 03:00 02/12/18 09: 12 Sodium 1.5 gm/ Sodium Chloride IVPB 200 mls/hr Q6H-IV JOAQUÍN Administration Home Medications Medication Instructions Recorded Ibuprofen [Motrin] 400 mg PO TID PRN 02/11/18 Microbiology 02/11/18 11:40 Cerebral Spinal Fluid - Lumbar Puncture Gram Stain - Final 02/11/18 11:40 Cerebral Spinal Fluid - Lumbar Puncture CSF Culture - Preliminary 02/11/18 08:30 Blood - Peripheral Venous Blood Culture - Preliminary NO GROWTH OBTAINED AFTER 24 HOURS, INCUBATION TO CONTINUE FOR 4 DAYS. 02/11/18 08:30 Blood - Peripheral Venous Blood Culture - Preliminary NO GROWTH OBTAINED AFTER 24 HOURS, INCUBATION TO CONTINUE FOR [address] Cspine and facial CT reviewed: Negative for any pathology HOSPITAL COURSE: Date of Admission:02/11/18 Date of Discharge: 02/12/18 Pt is a 42 y/o F with no significant PMHx who presented to the ED with headache and neck pain since yesterday.Patient had a dental work up done a week ago, she had a root canal done and was given a week of Antibiotics Augmentin as per patient. Yesterday she developed this severe headache with neck spasm and difficulty opening her mouth. Neck pain 10/10 ,none radiating. 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 Denies lifting anything heavy or having any car accident. # Acute headache , meningitis was r/o s/p LP in ED, no cells , Id was consulted. aND STARTED HER ON IV Unasyn. CT negative for any bleed. cpine and facial Ct was negativwe for any pathology. # Acute Jaw lock syndrome/Trismus . will discharge her with Flexeril and warm towel or heating pad behind her neck. Neuro consult appreciated Discharge [atient home on Flexeril, and 3 days of fiorioricet as per neuro recommendation Minutes to complete discharge: 35 Discharge Summary Reason For Visit: HEADACHE/NECK PAIN Current Active Problems Headache (Acute) Neck pain (Acute) Condition: Fair - Instructions - Home Medications Comprehensive Discharge Medication List: Ambulatory Orders Ibuprofen [Motrin] 400 mg PO TID PRN 02/11/18 This patient is new to me today: No Emergency Visit: Yes ED Registration Date: 02/11/18 Care time: The patient presented to the Emergency Department on the above date and was hospitalized for further evaluation of their emergent condition. Critical Care patient: No - Discharge Referral Referred to [facility] Med P.C.: No
--- NOTE | 2018-02-12 13:35 | CONS ---
DATE OF CONSULTATION: 02/11/2018 HISTORY OF PRESENT ILLNESS: The patient is a 42-year-old female evaluated for possible meningitis. The patient was seen in consultation on February 11, 2018. The patient has no medical history. She had undergone dental procedures, including what was described as a root canal, the week prior to her hospital admission. She is now admitted with complaints of worsening neck and shoulder pain. She was seen in the emergency room where she was noted to be in distress secondary to neck pain. Concern was expressed about the possibility of bacterial meningitis. A lumbar puncture was performed in the emergency room. This yielded clear spinal fluid with no white cells, 18 red cells, glucose 49, protein 36. Gram stain showed no organisms or polys. The patient was evaluated in the emergency room where she was awake and responsive, answering questions appropriately. She denied photophobia. No nuchal rigidity, although there is tenderness to neck flexion. No known ill contacts. No insect or animal bites or scratches. PAST MEDICAL HISTORY: Negative. PAST SURGICAL HISTORY: Status post section and hysterectomy. ALLERGIES: No known allergies. SOCIAL HISTORY: She is originally from [facility] and has been living in the [facility] for several years. No history of tobacco, alcohol or illicit drug use. LAB DATA: White count 5.3, hematocrit 39.7, platelet count 215, BUN 10, creatinine 0.6. Liver enzymes normal. A CAT scan of the head was negative for acute pathology. CAT scan of the facial bones showed no discrete fluid collection or abnormal contrast enhancement. Neck soft tissues with no pathology. PHYSICAL EXAMINATION: General: She is in mild distress secondary to neck pain. Vital Signs: Temperature 98.0, pulse 76, blood pressure 99/58, respiratory rate 15 per minute. HEENT:: Sclerae anicteric. Oropharynx negative. Neck: Supple. However, it is tender to flexion. No palpable adenopathy. Heart: Heart sounds S1, S2. Lungs: Clear. Abdomen: Soft and nontender. Extremities: Negative for edema. Skin: No rash noted. IMPRESSION: 1. No evidence for acute meningitis. 2. Status post dental work; possible infection secondary to dental source. PLAN: Blood cultures have been obtained. Unasyn for empiric antibiotic coverage of mouth ye. Neurology evaluation. Analgesics and muscle relaxants p.r.n. The case was discussed with the hospitalist. Thanks for the kind referral. CAMILLE JACOBS M.D. PRIETO/[id number]
--- NOTE | 2018-02-12 13:35 | PN ---
Progress Note, Physician History of Present Illness: sitting in the bed Feels much better Received another dosage of the ampicil Mild neck pain No headache No fever Hemodynamically stable No confusion - Current Medication List Current Medications: Active Medications Acetaminophen/Butalbital/Caffeine (Fioricet -) tablet PO ONCE [facility] Cyclobenzaprine HCl (Flexeril -) 5 mg PO TID [facility] Last Admin: 02/12/18 06:15 Dose: 5 mg Diazepam (Valium -) 2 mg PO BID [facility] Last Admin: 02/12/18 09:12 Dose: 2 mg Heparin Sodium (Porcine) (Heparin -) 5,000 unit SQ TID [facility] Last Admin: 02/12/18 06:16 Dose: 5,000 unit Sodium Chloride (Normal Saline -) 1,000 mls @ 125 mls/hr IV ASDIR [facility] Last Admin: 02/12/18 02:37 Dose: 125 mls/hr Ampicillin Sodium/Sulbactam (Sodium 1.5 gm/ Sodium Chloride) 100 mls @ 200 mls/ hr IVPB Q6H-IV [facility] Last Admin: 02/12/18 09:12 Dose: 200 mls/hr - Objective Vital Signs: Vital Signs Temperature 99.0 F 02/12/18 08:45 Pulse Rate 65 02/12/18 08:45 Respiratory Rate 20 02/12/18 08:45 Blood Pressure 93/57 02/12/18 08:45 O2 Sat by Pulse Oximetry (%) 98 02/12/18 02:00 Constitutional: Yes: Well Nourished Neurological: Yes: Alert, Oriented ...Motor Strength: WNL Labs: CBC, BMP 02/12/18 07:00 02/12/18 07:00 INR, PTT INR 1.11 (0.83-1.09) H 02/11/18 08:40 Problem List - Problems (1) Headache Assessment/Plan: questionable viral syndrome Tension-type headache Baseline migraine 1. Increased by mouth fluid intake. 2. Headache Diary 3. Bedrest Code(s): R51 - HEADACHE Qualifiers: Headache type: unspecified Headache chronicity pattern: acute headache Intractability: intractable Qualified Code(s): R51 - Headache (2) Neck pain Assessment/Plan: Flexeril No Abx upon DC Follwo up with neurology as OP Code(s): M54.2 - CERVICALGIA
== END 2018-02-12 14:20 | disposition home or self-care (01) ==
LOC: JER 06:42 → INTOOBSV 13:22 → JERBED 13:22 → J8W 02-12 02:18
PROVIDERS: ADMIT Internal Medicine; ATTEND Internal Medicine
PROC: 3E03329 Introduction of Other Anti-infective into Peripheral Vein, Percutaneous Approach (ICD-10-PCS; principal; 2018-02-11)
PROC: 3E033NZ Introduction of Analgesics, Hypnotics, Sedatives into Peripheral Vein, Percutaneous Approach (ICD-10-PCS; 2018-02-11)
PROC: 3E033GC Introduction of Other Therapeutic Substance into Peripheral Vein, Percutaneous Approach (ICD-10-PCS; 2018-02-11)
PROC: 3E0337Z Introduction of Electrolytic and Water Balance Substance into Peripheral Vein, Percutaneous Approach (ICD-10-PCS; 2018-02-11)
PROC: 3E013GC Introduction of Other Therapeutic Substance into Subcutaneous Tissue, Percutaneous Approach (ICD-10-PCS; 2018-02-11)
DX: M54.2 Cervicalgia (principal); R51 Headache; M43.6 Torticollis; M26.609 Unspecified temporomandibular joint disorder, unspecified side
CPT/HCPCS: 36415; 70450-TC; 70487-TC; 70491-TC; 80048; 80053; 82945; 83605; 83735; 84100; 84157; 84703; 85025; 85027; 85610; 85730; 87040; 87070; 87205; 96365; 96367; 96372; 96375; 99282-25; G0378; J0131; J1644; J7030

== ENCOUNTER 2019-01-31 10:32 | Emergency (ER) | payer OTHER ==
[2019-01-31 10:41] VITALS: BP 105/58; PULSE 79; TEMP 98; BMI 33.6
[2019-01-31] MEDS ORDERED: KETOROLAC TROMETHAMINE 30 MG/1 ML VIAL IVPUSH ONE (12:15)
--- NOTE | 2019-01-31 12:15 | PDOC ---
History of Present Illness - General Chief Complaint: Pain Stated Complaint: PELVIC PAIN Time Seen by Provider: 01/31/19 10:44 History Source: Patient - History of Present Illness Timing/Duration: reports: constant Past History - Past Medical History Allergies/Adverse Reactions: Allergies Allergy/AdvReac Type Severity Reaction Status Date / Time No Known Allergies Allergy Verified 01/31/19 10:38 Home Medications: Ambulatory Orders Ibuprofen [Motrin -] 400 mg PO TID PRN 01/31/19 COPD: No - Surgical History Abdominal Surgery: Yes - Reproductive History (#): 4 Para: 2 Spontaneous : 3 - Immunization History Immunization Up to Date: Yes - Suicide/Smoking/Psychosocial Hx Smoking Status: No Smoking History: Never smoked Have you smoked in the past 12 months: No Number of Cigarettes Smoked Daily: 0 Hx Alcohol Use: No Drug/Substance Use Hx: No Substance Use Type: None Review of Systems - Review of Systems Constitutional: No: Chills, Fever ABD/GI: No: Diarrhea, Nausea, Vomiting : No: Dysuria, Discharge, Frequency, Flank Pain, Hematuria *Physical Exam - Vital Signs Last Vital Signs Temp Pulse Resp BP Pulse Ox 98 F 79 18 105/58 L 99 01/31/19 10:38 01/31/19 10:38 01/31/19 10:38 01/31/19 10:38 01/31/19 10:38 - Physical Exam General Appearance: Yes: Appropriately Dressed. No: Apparent Distress HEENT: positive: Normal Voice Neck: positive: Lymphadenopathy (R) Respiratory/Chest: negative: Respiratory Distress Female Pelvic Exam: positive: normal external exam, normal adnexa. negative: CMT, discharge, vaginal bleeding Gastrointestinal/Abdominal: positive: Normal Bowel Sounds, Tender (sig ttp to LLQ), Soft. negative: Distended, Guarding, Rebound Musculoskeletal: negative: CVA Tenderness Integumentary: positive: Dry, Warm Neurologic: positive: Fully Oriented, Alert, Normal Mood/Affect ED Treatment Course - LABORATORY CBC & Chemistry Diagram: 01/31/19 12:00 01/31/19 12:00 - RADIOLOGY Radiology Studies Ordered: Category Date Time Status ABDOMEN & PELVIS CT WITH CONTR [CT] Stat CT Scan 01/31/19 12:12 Ordered Medical Decision Making - Medical Decision Making 01/31/19 12:12 43-year-old female s/p hysterectomy remotely 2/2 menorrhagia, here with severe LLQ pain x several days. No dysuria, hematuria, nausea, vomiting, fever, chills , vaginal discharge or change in bowel movements. No history of similar pain See exam R/o diverticulitis, possibly stone vs UTI/pyelo, no ttp over mcburneys, no e/o PID on pelvic exam -pain control -labs -UA -CT 01/31/19 15:[address] unremarkable. UA w/ >70 jordan, no dysuria so will hold off on abx and send ucx. Pt states pain better w/ meds. Will dc w/ PMD f/u *DC/Admit/Observation/Transfer Diagnosis at time of Disposition: Abdominal pain Qualifiers: Abdominal location: left lower quadrant Qualified Code(s): R10.32 - Left lower quadrant pain - Discharge Dispostion Disposition: HOME Condition at time of disposition: Improved - Referrals - Patient Instructions Printed Discharge Instructions: DI for Abdominal Pain-Adult Additional Instructions: The cause of your abdominal pain is unclear as your labs and CAT scan were normal here. Take Motrin or Tylenol for pain and follow-up with your PMD Print Language: DIVEHI - Post Discharge Activity
[2019-01-31 12:19] LABS: BASO % 0.3 % (0-2.0); EOS % 0.6 % (0-4.5); HEMATOCRIT 37.9 % (32.4-45.2); HEMOGLOBIN 12.9 GM/dL (10.7-15.3); LYMPH % 28.7 % (8-40); MCH 30.3 pg (25.7-33.7); MCHC 34.1 g/dl (32.0-36.0); MEAN CELL VOLUME 88.9 fl (80-96); MEAN PLT VOLUME 8.7 fl (7.5-11.1); MONO % 8.1 % (3.8-10.2); NEUT % 62.3 % (42.8-82.8); PLATELET COUNT 217 K/MM3 (134-434); RBC 4.26 M/mm3 (3.60-5.2); RDW 14.3 % (11.6-15.6); WHITE BLOOD COUNT 5.6 K/mm3 (4.0-10.0)
[2019-01-31 12:57] LABS: ALBUMIN 3.6 g/dl (3.4-5.0); BILIRUBIN,TOTAL 0.6 mg/dL (0.2-1); BLOOD UREA NITROGEN 5.8 mg/dL (7-18); CALCIUM 9.1 mg/dL (8.5-10.1); CREATININE 0.6 mg/dL (0.55-1.3); POTASSIUM 3.9 mmol/L (3.5-5.1); TOT PROT 7.3 g/dl (6.4-8.2)
[2019-01-31] MEDS ORDERED: KETOROLAC TROMETHAMINE 30 MG/1 ML VIAL ONE (12:57)
[2019-01-31 14:13] LABS: EPI CELLS 2.2 /HPF (0-5/HPF); HYALINE CASTS 0 /lpf (0-8); URINE APPEARANCE CLEAR; URINE BACTERIA 71.7 /hpf (NEGATIVE); URINE BILIRUBIN NEGATIVE (NEGATIVE); URINE COLOR YELLOW; URINE GLUCOSE (UA) NEGATIVE (NEGATIVE); URINE KETONE NEGATIVE (NEGATIVE); URINE LEUK ESTERASE NEGATIVE (NEGATIVE); URINE NITRITE NEGATIVE (NEGATIVE); URINE PROTEIN NEGATIVE (NEGATIVE); URINE RBC 1 /hpf (0-4); URINE UROBILINOGEN 0.2 mg/dL (0.2-1.0); URINE WBC 1 /hpf (0-5)
== END 2019-01-31 15:13 | disposition home or self-care (01) ==
LOC: JER 10:32
PROC: 3E0333Z Introduction of Anti-inflammatory into Peripheral Vein, Percutaneous Approach (ICD-10-PCS; principal; 2019-01-31)
DX: R10.32 Left lower quadrant pain (principal)
CPT/HCPCS: 36415; 74177-TC; 80053; 81003; 85025; 87086; 96374; 99283-25

== ENCOUNTER 2021-07-10 10:37 | Emergency (ER) | payer OTHER ==
[2021-07-10 10:45] VITALS: BP 103/70; PULSE 81; TEMP 97.9; BMI 24.7
[2021-07-11 13:06] LABS: SARS-CoV-2 NAA Not Detected (Not Detected)
== END 2021-07-10 12:24 | disposition home or self-care (01) ==
LOC: JER 10:37
DX: O98.512 Other viral diseases complicating pregnancy, second trimester (principal); Z3A.16 16 weeks gestation of pregnancy
CPT/HCPCS: 87804; 99283-25; C9803; U0003; U0005